=== PATIENT | female | born 1950 | race Caucasian/White ===

== ENCOUNTER → 2016-11-10 | Outpatient (CLI) | payer MEDICARE, OTHER ==
--- NOTE | 2016-11-16 13:16 | MAM ---
EXAM DESCRIPTION: 3D Screening BILATERAL CLINICAL HISTORY: 66 years, Female, Screening mammogram COMPARISON: None TECHNIQUE: CC and MLO digital mammograms with 3-D tomosynthesis. No CAD utilized. FINDINGS: There are scattered fibroglandular densities. There is no dominant mass nor any suspicious microcalcifications. Benign microcalcifications are present. IMPRESSION: BIRAD CATEGORY: 2 BENIGN FOLLOW-UP: Routine mammography screening. Electronically signed by: Marek Howard MD 11/16/2016 1:15 PM CDT
== END ==
LOC: MAMMO 09:32
PROVIDERS: ATTEND Obstetrics & Gynecology
DX: Z12.31 Encounter for screening mammogram for malignant neoplasm of breast (principal)
CPT/HCPCS: G0202; G0279

== ENCOUNTER → 2018-11-27 | Outpatient (CLI) | payer MEDICARE, OTHER ==
--- NOTE | 2018-11-27 16:46 | RAD ---
EXAM DESCRIPTION: XR Hip,Left 2 Views (accession [id number]), XR Knee,Left Complete, 3 views (accession [id number]) CLINICAL HISTORY: 68 years Female, HIP PAIN, KNEE PAIN COMPARISON: None. FINDINGS: 2 views of the left hip demonstrate no evidence of acute fracture or dislocation or destructive bony lesion. The hip joint space is maintained. The femoral head cortex is smooth. There is minimal spurring at the greater trochanter. Regional soft tissues are essentially unremarkable. 3 views of the left knee demonstrate no evidence of acute fracture or dislocation or destructive bony lesion. There is minimal spurring at the upper posterior patellar margin. The medial aspect of the tibiofemoral joint space is considerably narrowed. There is no evidence of joint effusion. IMPRESSION: No significant bony abnormality identified in the left hip. Essentially unremarkable left knee except for medial compartment narrowing. Electronically signed by: Braulio Alva MD 11/27/2018 4:44 PM CDT
--- NOTE | 2018-11-27 16:46 | RAD ---
EXAM DESCRIPTION: XR Hip,Left 2 Views (accession [id number]), XR Knee,Left Complete, 3 views (accession [id number]) CLINICAL HISTORY: 68 years Female, HIP PAIN, KNEE PAIN COMPARISON: None. FINDINGS: 2 views of the left hip demonstrate no evidence of acute fracture or dislocation or destructive bony lesion. The hip joint space is maintained. The femoral head cortex is smooth. There is minimal spurring at the greater trochanter. Regional soft tissues are essentially unremarkable. 3 views of the left knee demonstrate no evidence of acute fracture or dislocation or destructive bony lesion. There is minimal spurring at the upper posterior patellar margin. The medial aspect of the tibiofemoral joint space is considerably narrowed. There is no evidence of joint effusion. IMPRESSION: No significant bony abnormality identified in the left hip. Essentially unremarkable left knee except for medial compartment narrowing. Electronically signed by: Braulio Alva MD 11/27/2018 4:44 PM CDT
== END ==
LOC: RAD 15:55
PROVIDERS: ATTEND Nurse Practitioner Family
DX: M25.559 Pain in unspecified hip (principal)

== ENCOUNTER → 2020-03-08 | Outpatient (CLI) | payer MEDICARE, OTHER ==
--- NOTE | 2020-03-09 16:47 | MAM ---
EXAM DESCRIPTION: 3D Screening BILATERAL : Digital Mammography. CLINICAL HISTORY: 69 years Female screening . No complaints. Remote family history of breast cancer. Menarche age 10. Childbirth age 21. Menopause age 51. No HRT. Lifetime risk of developing breast cancer (Tyrer-Cuzick model)(%): 4.3. COMPARISON: Bilateral screening digital breast tomosynthesis November 2016. Bilateral screening digital rest 3-D imaging July 2015 TECHNIQUE: Bilateral CC and MLO projection full-field images, digital tomosynthesis mammographic technique. Bilateral digital 2-D full-field MLO images. CAD available for 2-D images. FINDINGS: The breast parenchymal density pattern is: Scattered areas of fibroglandular density. Axillary nodes. Solitary microcalcifications. Pacemaker power pack obscures the region of the left posterior breast and left pectoral muscle circumscribed intramammary lymph nodes are stable. No skin thickening or nipple retraction No new focal, stellate mass or density, focal asymmetry , and no suspicious microcalcifications bilaterally. Stable mammograms compared to prior study. IMPRESSION: Benign exam. BIRAD CATEGORY: 2 BENIGN FINDINGS. RECOMMENDATIONS: FOLLOW UP: Routine digital bilateral mammographic screening, one year interval from March 2020. Written communication explaining the IMPRESSION and follow-up, will be mailed to the patient and referring health care provider. According to the [employer], yearly mammograms are recommended starting at age 40 and continuing as long as a woman is in good health. Any breast change noted on a breast self-exam should be reported promptly to the patient's healthcare provider. Breast MRI is recommended for women with an approximately 20-25% or greater lifetime risk of breast cancer, including women with a strong family history of breast or ovarian cancer and women who have been treated for Hodgkin's disease. A negative mammographic report should not delay tissue diagnosis in patients with significant clinical history or physical findings. Extremely dense breast tissue limits the sensitivity of digital mammography. Electronically signed by: Romain Phillips MD 03/09/2020 4:45 PM [facility]
== END ==
LOC: MAMMO 13:20
PROVIDERS: ATTEND Obstetrics & Gynecology
DX: Z12.31 Encounter for screening mammogram for malignant neoplasm of breast (principal)